=== PATIENT | female | born 1975 | race Caucasian/White ===

== ENCOUNTER 2017-06-17 06:15 | Emergency (ER) | payer BC, OTHER ==
[~2017-06-17] VITALS: Ht 157.5 cm; Wt 62.6 kg
--- NOTE | 2017-06-17 06:15 | NUR ---
BIBA TO ER BED 5
[2017-06-17 06:24] VITALS: BP 115/84
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
--- NOTE | 2017-06-17 06:58 | NUR ---
PT TAKEN FOR X-RAY VIA WHEEL CHAIR.
--- NOTE | 2017-06-17 07:02 | NUR ---
Pt report given to THELMA DE DIOS. Transfer of care at this time.PT JOE, VSS.
[2017-06-17 07:45] VITALS: BP 113/72
--- NOTE | 2017-06-17 07:45 | NUR ---
Patient discharged with v/s stable. Written and verbal after care instructions given and explained. Patient alert, oriented and verbalized understanding of instructions. Ambulatory with steady gait. All questions addressed prior to discharge. ID band removed. Patient advised to follow up with PMD. Rx of ibuprofen, flexeril given. Patient educated on indication of medication including possible reaction and side effects. Opportunity to ask questions provided and answered.
== END 2017-06-17 07:45 | disposition home or self-care (01) ==
LOC: MED 06:15
DX: S13.4XXA Sprain of ligaments of cervical spine, initial encounter (principal); E11.9 Type 2 diabetes mellitus without complications; V49.69XA Unspecified car occupant injured in collision with other motor vehicles in traffic accident, initial encounter; Y93.89 Activity, other specified; Y92.488 Other paved roadways as the place of occurrence of the external cause; Y99.8 Other external cause status
CPT/HCPCS: 72050; 99284